=== PATIENT | male | born 1955 | race Caucasian/White ===

== ENCOUNTER → 2021-01-25 | Outpatient (CLI) | payer MEDICARE ==
[~2021-01-25] MED LIST: CEPHALEXIN500 M1 PO; LIPITOR 10MG10 MG PO; NORCO 325 MG-51 TAB PO; NORCO 325 MG-7.1 TAB PO; mvi PO
== END ==
LOC: COL.RAD 07:09
DX: Z13.6 Encounter for screening for cardiovascular disorders (principal)